=== PATIENT | male | born 1975 | race Caucasian/White ===

== ENCOUNTER 2017-12-11 09:15 | Emergency (ER) | payer OTHER ==
[2017-12-11] MEDS ORDERED: Sodium Chloride 0.9% 2.5 ML Syringe FLUSH PRN (09:17)
[2017-12-11] MEDS ORDERED: Morphine 4 MG/ML Syringe IVPUSH ONE (09:17)
[2017-12-11] MEDS ORDERED: Sodium Chloride 0.9% 10 ML Syringe FLUSH PRN (09:17)
--- NOTE | 2017-12-11 10:35 | CT ---
EXAMINATION: Non contrast CT head and facial bones. Coronal and sagittal reformats. HISTORY: Pain FINDINGS: Head: No evidence of intra or extra axial hemorrhage, mass, midline shift, hydrocephalus or edema. C avum septum pellucidum. No hypoattenuation changes in the major vascular territories to suggest acute infarct. No abnormal i ntracranial calcifications are detected. No evidence of substantial vascular calcifications. Mucous retention cyst noted within the maxillary sinuses. Opacification of a few ethmoid air cells is noted. Mastoid air cells and middle ears are clear. Pituitary fossa appears unremarkable. Calvarium is intact. No evidence of skull fracture. Facial bones: Orbits and globes are symmetric. The zygomatic arches, maxillary and orbital almazan appe ar intact. Obstruction of the ostiomeatal complexes bilaterally secondary to mucosal thickening. Nasa l septum is minimally deviated to the left with a tiny spur. Pterygoid plates are intact. The mandibl e is intact. No displaced nasal bone fractures. IMPRESSION: 1. No acute intracranial findings. 2. No displaced facial bone injury identified. 3. Mild paranasal sinus disease.
--- NOTE | 2017-12-11 10:55 | CT ---
EXAMINATION: CT cervical spine HISTORY: Injury COMPARISON: None TECHNIQUE: Axial CT images obtained through the cervical spine without contrast. Coronal and sagittal reconstructions obtained. FINDINGS: There is straightening of the normal cervical doses, likely positional. The vertebral body heights appear maintained. There is disc space narrowing noted at C5-C6. Bone mineralization is modest[place] l. No fracture or acute osseous abnormality. Lung apices are clear. Paravertebral soft tissues are no rmal. IMPRESSION: 1. Mild degenerative changes without acute findings.
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
== END 2017-12-11 11:27 | disposition home or self-care (01) ==
LOC: MW.ED 09:15
DX: S00.83XA Contusion of other part of head, initial encounter (principal); F17.210 Nicotine dependence, cigarettes, uncomplicated; W22.8XXA Striking against or struck by other objects, initial encounter
CPT/HCPCS: 70450; 70486; 72125; 96374; 99284; G0390; J2270